=== PATIENT | male | born 1980 | race Caucasian/White ===

== ENCOUNTER 2016-12-22 20:37 | Emergency (ER) | payer OTHER ==
[~2016-12-22 20:37] MED LIST: FIORICET1 TAB PO; LISINOPRIL10 MG PO; MECLIZINE HYD12.5 MG PO; NOR10T PO
[2016-12-22 21:33] VITALS: BP 185/128
== END 2016-12-22 21:33 | disposition home or self-care (01) ==
LOC: ED 20:37
DX: S00.83XA Contusion of other part of head, initial encounter (principal); I10 Essential (primary) hypertension; W21.07XA Struck by softball, initial encounter; Y93.64 Activity, baseball; Y92.320 Baseball field as the place of occurrence of the external cause

== ENCOUNTER 2017-06-10 17:31 | Inpatient (IN) | payer OTHER ==
[~2017-06-10] VITALS: Ht 170.2 cm; Wt 125.6 kg
[2017-06-10 17:36] VITALS: Ht 170.2 cm; Wt 125.6 kg
[2017-06-10 23:07] LABS: PLATELET COUNT 306 x10^3mcL (130-400)
[2017-06-10 23:19] LABS: CARBON DIOXIDE 31.9 mmol/L (21-32); CHLORIDE SERUM 102 mmol/L (98-107); CREATININE SERUM 1.2 mg/dL (0.7-1.3); GFR1 > 60 mL/min; GLUCOSE SERUM 91 mg/dL (74-106); POTASSIUM SERUM 3.1 mmol/L (3.5-5.1); SODIUM SERUM 143 mmol/L (136-145)
[2017-06-10 23:25] LABS: ALBUMIN 3.8 g/dL (3.4-5.0); ALKALINE PHOSPHATASE 131 U/L (46-116); ALT/SGPT 46 U/L (16-63); AST/SGOT 29 U/L (15-37); BILIRUBIN TOTAL 0.7 mg/dL (0.20-1.00)
[2017-06-11] VITALS (11 sets, daily range): BP systolic 119–182; BP diastolic 71–122
[2017-06-11 01:18] LABS: MAGNESIUM 2.2 mg/dL (1.8-2.4); PHOSPHOROUS 3.9 mg/dL (2.5-4.9)
[2017-06-11 01:32] LABS: FREE T4 1.07 ng/dL (0.76-1.46); FREE THYROXINE INDEX 2.8 ug/dL (1.4-4.5); T4(THYROXINE) 7.9 ug/dL (4.7-13.3)
[2017-06-11 02:29] LABS: T3 TOTAL 1.47 ng/mL
[2017-06-11 06:01] LABS: BASOPHIL % 0.3 % (0-2); PLATELET COUNT 292 x10^3mcL (130-400)
[2017-06-11 06:26] LABS: CALCIUM 8.6 mg/dL (8.5-10.1); CARBON DIOXIDE 30.5 mmol/L (21-32); CHLORIDE SERUM 104 mmol/L (98-107); CREATININE SERUM 1.3 mg/dL (0.7-1.3); GFR1 > 60 mL/min; GLUCOSE SERUM 94 mg/dL (74-106); POTASSIUM SERUM 3.6 mmol/L (3.5-5.1); SODIUM SERUM 144 mmol/L (136-145)
[2017-06-11] MEDS ORDERED: ZES20 PO (18:15)
[2017-06-11 21:47] LABS: CHOLESTEROL 159 mg/dL (<200); TRIGLYCERIDES 149 mg/dL (<150)
[2017-06-12] VITALS (7 sets, daily range): BP systolic 143–162; BP diastolic 74–109
[2017-06-12 06:24] LABS: BASOPHIL % 0.3 % (0-2); PLATELET COUNT 279 x10^3mcL (130-400); RED CELL DISTRIBUTION WIDTH 13.7 % (11.5-14.5)
[2017-06-12 06:50] LABS: CALCIUM 8.9 mg/dL (8.5-10.1); CARBON DIOXIDE 27.8 mmol/L (21-32); CHLORIDE SERUM 104 mmol/L (98-107); GFR1 > 60 mL/min; GLUCOSE SERUM 101 mg/dL (74-106); MAGNESIUM 2.1 mg/dL (1.8-2.4); POTASSIUM SERUM 3.8 mmol/L (3.5-5.1); SODIUM SERUM 141 mmol/L (136-145)
[2017-06-12] MEDS ORDERED: NOR5 PO (14:05)
[2017-06-12] MEDS ORDERED: HYDROCHLOROTH12.5 M3 PO (14:07)
[2017-06-12] MEDS ORDERED: ASPIR 8181 MG PO (14:21)
[2017-06-12] MEDS ORDERED: LOSARTAN POTASS50 M1 PO (14:52)
== END 2017-06-12 15:40 | disposition home or self-care (01) | DRG 565 ==
LOC: ED 17:31 → DU 23:54
PROVIDERS: Emergency Medicine; Family Medicine
DX: M77.32 Calcaneal spur, left foot (principal); Z68.41 Body mass index [BMI] 40.0-44.9, adult; M76.62 Achilles tendinitis, left leg; S93.402A Sprain of unspecified ligament of left ankle, initial encounter; S90.02XA Contusion of left ankle, initial encounter; G47.33 Obstructive sleep apnea (adult) (pediatric); E66.9 Obesity, unspecified; D72.829 Elevated white blood cell count, unspecified; K21.9 Gastro-esophageal reflux disease without esophagitis; M94.0 Chondrocostal junction syndrome [Tietze]; I10 Essential (primary) hypertension; E87.6 Hypokalemia; Z83.3 Family history of diabetes mellitus; Z82.49 Family history of ischemic heart disease and other diseases of the circulatory system
CPT/HCPCS: 83880; 84439; J0360; J3490; J7030; Q0092

== ENCOUNTER 2017-12-15 07:03 | Emergency (ER) | payer OTHER ==
[~2017-12-15] VITALS: Ht 170.2 cm; Wt 130.2 kg
[~2017-12-15 07:03] MED LIST changes: +ASPIR 8181 MG PO; +HYDROCHLOROTH12.5 M3 PO; +LOSARTAN POTASS50 M1 PO; +NOR5 PO; +ZES20 PO
[2017-12-15 07:11] VITALS: Ht 170.2 cm; Wt 130.2 kg
[2017-12-15 09:59] VITALS: BP 150/102
== END 2017-12-15 10:30 | disposition home or self-care (01) ==
LOC: ED 07:03
DX: S46.911A Strain of unspecified muscle, fascia and tendon at shoulder and upper arm level, right arm, initial encounter (principal); I10 Essential (primary) hypertension; X58.XXXA Exposure to other specified factors, initial encounter; Y93.89 Activity, other specified; Y92.89 Other specified places as the place of occurrence of the external cause; Y99.8 Other external cause status

== ENCOUNTER 2018-03-31 21:12 | Emergency (ER) | payer OTHER ==
[~2018-03-31] VITALS: Ht 167.6 cm; Wt 131.5 kg
[2018-03-31 21:48] VITALS: Ht 167.6 cm; Wt 131.5 kg
[2018-04-01 01:25] VITALS: BP 199/144
== END 2018-04-01 01:21 | disposition home or self-care (01) ==
LOC: ED 21:12
DX: I16.1 Hypertensive emergency (principal)
CPT/HCPCS: 82962

== ENCOUNTER 2018-04-13 09:25 | Emergency (ER) | payer OTHER ==
[~2018-04-13] VITALS: Ht 167.6 cm; Wt 130.2 kg
[2018-04-13 09:29] VITALS: Ht 167.6 cm; Wt 130.2 kg
[2018-04-13 11:00] VITALS: BP 194/124
== END 2018-04-13 11:00 | disposition home or self-care (01) ==
LOC: ED 09:25
DX: J04.0 Acute laryngitis (principal); J06.9 Acute upper respiratory infection, unspecified; I10 Essential (primary) hypertension
CPT/HCPCS: J0561; J1100; Q0092

== ENCOUNTER 2018-04-15 18:27 | Emergency (ER) | payer OTHER ==
[~2018-04-15] VITALS: Ht 167.6 cm; Wt 130.6 kg
[2018-04-15 18:31] VITALS: Ht 167.6 cm; Wt 130.6 kg
[2018-04-15 19:44] LABS: RED CELL DISTRIBUTION WIDTH 13.4 % (11.5-14.5)
[2018-04-15 19:47] LABS: CALCIUM 9.1 mg/dL (8.5-10.1); CARBON DIOXIDE 32.7 mmol/L (21-32); CHLORIDE SERUM 103 mmol/L (98-107); CREATININE SERUM 1.1 mg/dL (0.7-1.3); GFR1 > 60 mL/min; GLUCOSE SERUM 97 mg/dL (74-106); POTASSIUM SERUM 3.4 mmol/L (3.5-5.1); SODIUM SERUM 142 mmol/L (136-145)
[2018-04-15 19:49] LABS: BASOPHIL % 3.2 % (0-2); PLATELET COUNT 445 x10^3mcL (130-400)
[2018-04-15 19:52] LABS: ALKALINE PHOSPHATASE 87 U/L (46-116); ALT/SGPT 58 U/L (16-63); AST/SGOT 53 U/L (15-37); BILIRUBIN TOTAL 0.3 mg/dL (0.20-1.00); TOTAL PROTEIN, SERUM 8.2 g/dL (6.4-8.2)
[2018-04-15 19:53] LABS: ALBUMIN 3.2 g/dL (3.4-5.0)
[2018-04-15 21:00] VITALS: BP 190/131
== END 2018-04-15 21:00 | disposition home or self-care (01) ==
LOC: ED 18:27
PROVIDERS: Emergency Medicine
DX: J40 Bronchitis, not specified as acute or chronic (principal); I10 Essential (primary) hypertension
CPT/HCPCS: J7030; Q0092